=== PATIENT | female | born 1965 | race Caucasian/White ===

== ENCOUNTER 2019-11-07 22:56 | Inpatient (IN) | payer OTHER, SELFPAY ==
--- NOTE | 2019-11-07 23:15 | DI.RAD.S_ITS ---
PROCEDURE: XR CHEST 1V INDICATIONS: confirm NGT placement TECHNIQUE: One view of the chest was acquired. COMPARISON: None. FINDINGS: Surgical changes and devices: Esophagogastric tube in normal position.. Lungs and pleura: Lungs are clear considering reduced inspiratory volume. No pleural effusions or pneumothorax. Mediastinum: Mediastinal contours appear normal. Heart size is normal. Bones and chest wall: No suspicious bony lesions. Overlying soft tissues appear unremarkable. IMPRESSION: Esophagogastric tube positioning normal, reduced inspiration, crowding of the bronchovascular markings but no definite pneumonia is than when this is taken into account. Depending on the clinical status followup deep inspiratory two-view chest may be warranted. Dictated by: Cj Crawford M.D. on 11/08/2019 at 8:23 Approved by: Cj Crawford M.D. on 11/08/2019 at 8:24
[2019-11-07 23:19] LABS: Monocytes Percent Auto 7.3 % (3-14)
[2019-11-07 23:29] VITALS: BP 75/51; PULSE 96; RESP 14; TEMP 36.7; O2SAT 98
[2019-11-07 23:40] LABS: Lactate (Lactic Acid) 3.1 mmol/L (0.7-2.1)
[2019-11-07 23:41] LABS: Acetaminophen < 10 ug/mL (10-30); Add Manual Diff / Slide Review NO; Alanine Aminotransferase 23 IU/L (<35); Albumin 4.4 g/dL (3.5-5.0); Albumin Globulin Ratio 1.3 (1.0-2.8); Alkaline Phosphatase 61 U/L (38-126); Aspartate Aminotransferase 31 IU/L (14-36); BUN Creatinine Ratio 18.2 (6-22); Basophils Absolute Auto 100 /uL (0-100); Basophils Percent Auto 0.9 % (0-2); Bilirubin Total 0.3 mg/dL (0.2-1.3); Bilirubin Unconjugated 0.2 mg/dL (0.0-1.1); Blood Urea Nitrogen 16 mg/dL (7-17); Calcium 8.7 mg/dL (8.4-10.2); Carbon Dioxide 20 mmol/L (22-32); Chloride 108 mmol/L (98-107); Eosinophils Absolute Auto 100 /uL (0-450); Eosinophils Percent Auto 1.8 % (2-4); Estimated Glomerular Filt Rate > 60.0 mL/min (>60); Ethanol (ETOH) 256 mg/dL; Globulin 3.3 g/dL (1.7-4.1); Glucose 116 mg/dL (70-100); HEMOLYSIS < 15 (0-50); Hematocrit 40.5 % (36-46); Hemoglobin 13.4 g/dL (12.0-16.0); Lymphocytes Absolute Auto 2000 /uL (1100-4500); Lymphocytes Percent Auto 33.3 % (25-40); Mean Corpuscular HGB Conc 33.1 % (30-36); Mean Corpuscular Hemoglobin 28.7 PG (26-34); Mean Corpuscular Volume 86.7 fL (80-100); Monocytes Absolute Auto 400 /uL (0-900); Neutrophils Absolute Auto 3300 /uL (1500-7000); Neutrophils Percent Auto 56.7 % (50-75); Platelet Count 313 X10^3/uL (150-400); Red Blood Cell Count 4.67 X10^6/uL (4.0-5.2); Red Cell Distribution Width 13.6 % (11.6-14.8); Salicylate < 1.0 mg/dL (<20); Sodium 142 mmol/L (137-145); Total Protein 7.7 g/dL (6.3-8.2); White Blood Cell Count 5.9 X10^3/uL (4.5-11.0)
--- NOTE | 2019-11-07 23:45 | PC.NURSE ---
call placed to poison control and spoke to Pharmacist Joyce. advised pt needs continuous RR and BP monitoring. Lexapro can cause cardiac changes in 6-8 hours. advised of repeat EKG at the 5-6hr stefano (about 0430), seizure precautions, and K+ and Mag replacements as needed.
[2019-11-07] MEDS: SODIUM CHLORIDE 0.9% 1,000 ML 150 ML IV (23:48)
[2019-11-07] MEDS: ACTIVATED CHARCOAL 50 GM/240 ML PO (23:48)
[2019-11-08] VITALS (16 sets, daily range): BP systolic 80–145; BP diastolic 48–87; PULSE 77–98; RESP 14–32; TEMP 36.7–37.6; O2SAT 94–98; BMI 32.1
--- NOTE | 2019-11-08 00:26 | ED.OVERDOSE ---
HPI - Overdose General Chief Complaint: Toxicology Problem Stated Complaint: Overdose Time Seen by Provider: 11/07/19 22:59 Source: EMS Mode of arrival: EMS Limitations: altered mental status History of Present Illness HPI Narrative: 54F with unknown smoking status and history of anxiety and depression presents by EMS after a witnessed, intentional overdose with suicidal ideation. The patient drank a fair amount of wine and was found by her with a handful of pills that she swallowed about 30 minutes prior to her arrival. Per the paramedics she told him that she wanted to . It is unclear if she has ever made a suicide attempt in the past. She took an unknown quantity of escitalopram oxalate 10 mg tablets, tizanidine 4 mg tablets, and lorazepam 1 mg tablets. These were all prescribed her 6 months ago or longer. She presents a bit confused and somnolent but easily arousable and is guarding her airway without difficulty. MD complaint: intentional overdose Onset (ago): minute(s) Timing confirmed by: spouse Intent: suicide attempt How Overdose Was Discovered: family/friend present at time Associated symptoms: depression Treatments Prior to Arrival: none Review of Systems Review of Systems ROS Unobtainable: Unobtainable due to mental status/LOC Exam Narrative Exam Narrative: GENERAL: [54] year old patient appears stated age. Obviously in distress, somnolent but easily arousable. Guarding her airway without difficulty HEAD: Atraumatic. Normocephalic. EYES: Pupils equal round and reactive. Extraocular motions intact. No scleral icterus. No injection or drainage. ENT: Nose without bleeding, purulent drainage. Throat without erythema, tonsillar hypertrophy or exudate. Airway patent. NECK: Trachea midline. Non tender CARDIOVASCULAR: Regular rate and rhythm without murmurs, gallops, or rubs. RESPIRATORY: Clear to auscultation. Breath sounds equal bilaterally. No wheezes, rales, or rhonchi. GASTROINTESTINAL: Abdomen soft, non-tender, nondistended. EXTREMITIES: No edema or joint tenderness. BACK: Nontender without deformity or crepitance. No flank tenderness. SKIN: No rash or erythema of visible areas Initial Vital Signs Initial Vital Signs: Vital Signs Temperature 98.0 F 11/07/19 23:29 Pulse Rate 96 H 11/07/19 23:29 Respiratory Rate 14 11/07/19 23:29 Blood Pressure 75/51 L 11/07/19 23:29 Pulse Oximetry 98 11/07/19 23:29 Course Course Course Narrative: NG placed soon after arrival and about 200mL of reddish liquid, smells of alcohol, but no pill fragments. Charcoal 50g then given. call to poison control, watch for obtundation, low BP, cardiac effects. Needs admission. Orders Ordered: ED Orders 11/07/19 22:59 Urine Drug Screen, Rapid Stat 11/07/19 23:15 XR chest 1V Stat 11/07/19 23:20 Acetaminophen Stat Complete Blood Count AUTO DIFF Stat Comprehensive Metabolic Panel Stat Ethanol (ETOH) Stat Hepatic (Liver) Panel Stat Lactate (Lactic Acid) Stat Salicylate Stat 11/08/19 EKG-12 Lead Stat Sodium Chloride (Normal Saline 0.9%) 1,000 mls @ 150 mls/hr IV CONT SHILO Last Admin: 11/07/19 23:48 Dose: 150 mls/hr Documented by: ADDY Discontinued Medications Charcoal (Actidose-Aqua) 50 gm PO NOW ONE Stop: 11/07/19 23:00 Last Admin: 11/07/19 23:48 Dose: 50 gm Documented by: ADDY Vital Signs Vital signs: Vital Signs - 8 hr 11/07/19 23:29 11/08/19 00:00 Temperature 98.0 F Pulse Rate 96 H 96 H Respiratory Rate 14 14 Blood Pressure 75/51 L Blood Pressure [Right Arm] 80/48 L Pulse Oximetry 98 94 MDM - Overdose Lab Data Result diagrams: 11/07/19 23:20 11/07/19 23:20 Labs: Lab Results 11/07/19 11/07/19 11/07/19 Range/Units 23:20 23:20 23:20 WBC 5.9 (4.5-11.0) X10^3/uL RBC 4.67 (4.0-5.2) X10^6/uL Hgb 13.4 (12.0-16.0) g/dL Hct 40.5 (36-46) % MCV 86.7 (80-100) fL MCH 28.7 (26-34) PG MCHC 33.1 (30-36) % RDW 13.6 (11.6-14.8) % Plt Count 313 (150-400) X10^3/uL Neut % (Auto) 56.7 (50-75) % Lymph % (Auto) 33.3 (25-40) % [place] % (Auto) 7.3 (3-14) % Eos % (Auto) 1.8 L (2-4) % Baso % (Auto) 0.9 (0-2) % Neut # (Auto) 3300 (8106-7453) /uL Lymph # (Auto) 2000 (8930-1551) /uL [place] # (Auto) 400 (0-900) /uL Eos # (Auto) 100 (0-450) /uL Baso # (Auto) 100 (0-100) /uL Sodium 142 (137-145) mmol/L Potassium 4.0 (3.4-5.1) mmol/L Chloride 108 H (98-107) mmol/L Carbon Dioxide 20 L (22-32) mmol/L BUN 16 (7-17) mg/dL Creatinine 0.88 (0.52-1.04) mg/dL Estimated GFR > 60.0 (>60) mL/min BUN/Creatinine Ratio 18.2 (6-22) Glucose 116 H (70-100) mg/dL Lactate 3.1 H (0.7-2.1) mmol/L Calcium 8.7 (8.4-10.2) mg/dL Total Bilirubin 0.3 (0.2-1.3) mg/dL Conjugated Bilirubin 0.0 (0.0-0.3) md/dL Unconjugated Bilirubin 0.2 (0.0-1.1) mg/dL AST 31 (14-36) IU/L ALT 23 (<35) IU/L Alkaline Phosphatase 61 (38-126) U/L Total Protein 7.7 (6.3-8.2) g/dL Albumin 4.4 (3.5-5.0) g/dL Globulin 3.3 (1.7-4.1) g/dL Albumin/Globulin Ratio 1.3 (1.0-2.8) Salicylates < 1.0 (<20) mg/dL Acetaminophen < 10 L (10-30) ug/mL Ethyl Alcohol 256 H ( - 10) mg/dL Discharge Plan Departure Patient Disposition: Admitted As Inpatient Clinical Impression: Depression with suicidal ideation Polysubstance overdose Qualifiers: Encounter type: initial encounter Injury intent: intentional self-harm Qualified Code(s): T50.902A - Poisoning by unspecified drugs, medicaments and biological substances, intentional self-harm, initial encounter
[2019-11-08 01:26] LABS: Reflexed Lactate in 2 Hours Y
[2019-11-08 01:58] LABS: UR Morphine/Opiate cutoff 300 Negative (Negative); Ur Creatinine 20 (Normal); Ur Specific Gravity 1.015 (Normal); Urine Amphetamines Negative (Negative); Urine Barbiturates Negative (Negative); Urine Benzodiazepines Negative (Negative); Urine Cocaine Negative (Negative); Urine MDMA Negative (Negative); Urine Methadone Negative (Negative); Urine Methamphetamines Negative (Negative); Urine Oxycodone Negative (Negative); Urine Phencyclidine Negative (Negative); Urine Tetrahydrocannabinol Negative (Negative); Urine Tricyclic Antidepressant Negative (Negative); Urine pH 5 (Normal)
[2019-11-08 02:44] LABS: Lactate 2HR (Lactic Acid Rflx) 4.2 mmol/L (0.7-2.1)
[2019-11-08] MEDS: SODIUM CHLORIDE 0.45% 1,000 ML 100 ML IV ×2 (02:45→10:37)
--- NOTE | 2019-11-08 03:30 | PM.HP.1 ---
History of Present Illness History of Present Illness Date Patient Seen: 11/08/19 Time Patient Seen: 03:31 Chief complaint: Overdose Narrative: Ms. Fiordaliza Darling is a 54-year-old female with a prior history of depression with a previous suicide attempt in 2009 who presents to the ER for an overdose. The patient had a witnessed overdose by her approximately 40 minutes prior to arrival to the ER. The patient took another unknown quantity of escitalopram 10 mg, lorazepam 1 mg and tizanidine 4 mg along with drinking alcohol. The patient states these are old medications that she has had in the house. She reports her only medication to be Wellbutrin but does not recall the dose. The patient states she has felt a culmination many things that led to tonight's event. She and sources a previous suicidal attempt in 2009 which also involved overdose on medication and alcohol. She does have a provider that she talks with at [facility]. The patient also describes ongoing nightmares Murray about her mother who recently in September. She reports no complaints of physical pain and has had no recent illness, fevers or chills. She denies complaints headaches or dizziness, visual changes, nasal congestion or sore throat She denies complaints of chest pain or palpitations, shortness of breath cough or wheezing. She has nausea and vomiting upon arrival to the floor with charcoal appearing emesis that she receives treatment in the emergency department. She denies changes in bowel or bladder habits. Upon arrival to the ER the patient had a temperature 98.0?, heart rate 96 was hypotensive is 75/51, respirations of 14 saturating 98% on room air. An NG tube was inserted with no return pill fragments and patient was administered charcoal. A 12 lead EKG is taken with findings of a sinus rhythm at 85 without ectopy or block, QRS interval is 89 milliseconds and QTC is 451 milliseconds. On laboratory analysis the patient has white count of 5.9, hemoglobin of 13.4 hematocrit of 40.5 and platelets of 313. Her sodium was 142 with a chloride of 108. Her potassium is 4.0 and CO is 20. Her BUN is 16 and creatinine is 0.88. Her nonfasting glucose is 116. Her liver functions are all within normal limits and she has lactic acid of 3.1. On tox screen she has an alcohol level of 256, Tylenol is less than 10 and salicylates are less than 1.0. As mentioned the patient is treated with the activated charcoal 50 g and normal saline at 150 cc/hour. The patient is admitted to the hospital for polypharmacy overdose pending DCR evaluation when med clear. Patient History Medical History (Updated 11/08/19 @ 03:47 by SABRINA Baez) Depression with suicidal ideation (Inactive) Surgical History (Updated 11/08/19 @ 03:48 by SABRINA Baez) History of endometrial ablation (Acute) History of neck surgery (Acute) History of right oophorectomy (Acute) Family & Social History Family History (Updated 11/08/19 @ 03:49 by SABRINA Baez) Father Cardiac disease History of aortic valve replacement Mother Cancer Safety & Behavioral: Feels Safe in Current Unwilling to Answer Environment Been Physically Hurt or Unwilling to Answer Threatened By a Person Comment: The patient is and lives with her of 30 years. Smoking: Patient states she has tried smoking in the past. Alcohol: The patient consumes 8 oz of wine daily. Substance use: The patient denies recreational pharmaceuticals, herbal or cannabis products. Advanced directives: Patient does not have formal advanced directives. At this time the patient is deemed FULL CODE. She designates her to be her surrogate decision maker. Meds Home Medications and Allergies Allergies Allergy/AdvReac Type Severity Reaction Status Date / Time duloxetine [From Cymbalta] AdvReac Intermediate Verified 11/08/19 03:10 Review of Systems Review of Systems ROS: Yes All systems reviewed with the patient and are negative except as otherwise documented Exam Vital Signs (past 8 hours): - 11/07/19 23:29 11/08/19 00:00 11/08/19 02:35 Temperature 98.0 F 98.1 F Pulse Rate 96 H 96 H 98 H Respiratory Rate 14 14 24 Blood Pressure 75/51 L 103/62 Blood Pressure [Right Arm] 80/48 L Pulse Oximetry 98 94 98 11/08/19 03:00 Temperature Pulse Rate 98 H Respiratory Rate 18 Blood Pressure 115/68 Blood Pressure [Right Arm] Pulse Oximetry 97 Oxygen Delivery Method Room Air Oxygen Flow Rate 0 Narrative Exam Narrative: GENERAL APPEARANCE: well developed, obese female, in no acute distress. HEENT: Normocephalic, PERRLA, mild conjunctival injection EOMs intact without nystagmus, no sinus tenderness to percussion, no rhinorrhea, mucous membranes are moist and pink without lesions or exudate. NECK/THYROID: neck supple, no JVD, no carotid bruit, no thyromegaly, trachea midline. LYMPH NODES: no cervical or supraclavicular lymphadenopathy. SKIN: [place], warm and dry, no visible lesions, rashes, ulcerations or petechiae. HEART: regular rate and rhythm, S1-S2, no murmur, no rubs or gallops, brisk capillary refill, no edema LUNGS: clear to auscultation bilaterally, no coarseness crackles or wheezing, no cough present CHEST: Symmetrical movement, no accessory muscle use, good tidal volume. ABDOMEN: Soft, no distention, no abdominal tenderness, no guarding or peritoneal signs, no organomegaly, no flank tenderness, active bowel tones. BACK: Normal curvature, nontender to palpation, no CVA tenderness on percussion EXTREMITIES: moves all extremities, strength is 5/5 and symmetrical, no deformities or joint effusions. NEUROLOGIC: AAO x4, no focal neurologic deficits, cranial nerves II-XII grossly intact, sensation intact to light touch, hearing grossly normal to speech. PSYCH: Somewhat labile affect from tearful to compression of anger but remains cooperative and responsive to questions. Objective Labs Result Diagrams: 11/07/19 23:20 11/07/19 23:20 Labs: Laboratory Results - last 24 hr 11/07/19 11/07/19 11/07/19 23:20 23:20 23:20 WBC 5.9 RBC 4.67 Hgb 13.4 Hct 40.5 MCV 86.7 MCH 28.7 MCHC 33.1 RDW 13.6 Plt Count 313 Neut % (Auto) 56.7 Lymph % (Auto) 33.3 [place] % (Auto) 7.3 Eos % (Auto) 1.8 L Baso % (Auto) 0.9 Neut # (Auto) 3300 Lymph # (Auto) 2000 [place] # (Auto) 400 Eos # (Auto) 100 Baso # (Auto) 100 Sodium 142 Potassium 4.0 Chloride 108 H Carbon Dioxide 20 L BUN 16 Creatinine 0.88 Estimated GFR > 60.0 BUN/Creatinine Ratio 18.2 Glucose 116 H Lactate 3.1 H Calcium 8.7 Total Bilirubin 0.3 Conjugated Bilirubin 0.0 Unconjugated Bilirubin 0.2 AST 31 ALT 23 Alkaline Phosphatase 61 Total Protein 7.7 Albumin 4.4 Globulin 3.3 Albumin/Globulin Ratio 1.3 Salicylates < 1.0 U Opiates 300ng/mL cut Ur Oxycodone Screen Urine Methadone Screen Acetaminophen < 10 L Ur Barbiturates Screen U Tricyclic Antidepress Ur Phencyclidine Scrn Ur Amphetamines Screen U Methamphetamines Scrn Ur MDMA Scrn (Ecstasy) U Benzodiazepines Scrn Urine Cocaine Screen U Marijuana (THC) Screen Ethyl Alcohol 256 H 11/08/19 11/08/19 01:46 02:14 WBC RBC Hgb Hct MCV MCH MCHC RDW Plt Count Neut % (Auto) Lymph % (Auto) [place] % (Auto) Eos % (Auto) Baso % (Auto) Neut # (Auto) Lymph # (Auto) [place] # (Auto) Eos # (Auto) Baso # (Auto) Sodium Potassium Chloride Carbon Dioxide BUN Creatinine Estimated GFR BUN/Creatinine Ratio Glucose Lactate 4.2 H* Calcium Total Bilirubin Conjugated Bilirubin Unconjugated Bilirubin AST ALT Alkaline Phosphatase Total Protein Albumin Globulin Albumin/Globulin Ratio Salicylates U Opiates 300ng/mL cut Negative Ur Oxycodone Screen Negative Urine Methadone Screen Negative Acetaminophen Ur Barbiturates Screen Negative U Tricyclic Antidepress Negative Ur Phencyclidine Scrn Negative Ur Amphetamines Screen Negative U Methamphetamines Scrn Negative Ur MDMA Scrn (Ecstasy) Negative U Benzodiazepines Scrn Negative Urine Cocaine Screen Negative U Marijuana (THC) Screen Negative Ethyl Alcohol Assessment & Plan Assessment & Plan narrative: This is a 54-year-old female patient with a prior history of depression and suicidal attempt who was brought to the ER by her following a polypharmacy overdose with alcohol 40 minutes prior to arrival. 1. Polysubstance overdose, acute, present on arrival, active -patient had a witnessed ingestion of an unknown quantity of escitalopram 10 mg, lorazepam 1 mg and tizanidine 4 mg with alcohol 40 minutes prior to arrival to the ER. -tox screen finds an alcohol level of 256, Tylenol is less than 10 and salicylates is less than 1.0. -the patient received 50 g of charcoal in the emergency department. -blood pressure on admission was 75/51. The patient received IV normal saline with improvement of blood pressure to 115/70 on admission to ICU. -on 12 lead EKG and telemetry the patient has no QT prolongation, stable heart rate with no bradycardia, no hyponatremia and liver functions within normal range. -patient is briskly interactive without sedation, no respiratory depression and adequate oxygen saturation on pulse oximetry. She denies hallucinations. -poison control contacted through the emergency department for treatment recommendations which consisted primarily of supportive care and monitoring. -will repeat 12 lead EKG at their request at 4:30 a.m.. -will recheck complete metabolic panel in the morning. 2. Suicidal ideation, attempted suicide, present on admission, active. -patient admits to attempt to harm herself and becomes tearful. -patient with prior attempt in 2009 with medication and alcohol. -when asked if she has any resources or counselors she states she has a provider whom she speaks with through [employer]. -patient is on suicide precautions -maintain seizure precautions. -when med clear will contact DCR for evaluation. 3. Depression, major depressive episode, present on admission, active. -Patient has been previously treated for depression, she states that she is prescribed Wellbutrin but does not recall the dosage and does not take the medication regularly due to twice daily dosing regimen stating it does not work well with her lifestyle. -patient describes major life change with passing of her mother and becomes very tearful discussing her in September. -requested PICK UP AND DELIVERY DRIVER consult for behavioral evaluation and support and resource identification. Isolation: None. VTE prophylaxis: Bilateral SCDs, heparin. IV fluid: 0.45% normal saline at 100 cc/hour. Diet: Clear liquid diet advance as tolerated to regular. Code status: FULL CODE. The patient is admitted as an inpatient to the intensive care unit due to potential complications related to polypharmacy overdose and potential for cardiac and hemodynamic instability. Critical care time: 45 minutes. COVID-19 COVID-19 status: Not tested Time Spent With Patient Time with patient: Greater than 35 minutes
--- NOTE | 2019-11-08 06:23 | PC.NURSE ---
Admit/Night Note-Patient brought to ICU at 0230-Awake and impulsive, initially disoriented to place and time, but over the next hour, she became A/O x4 and able to answer admit questions. Discussed recent losses and stressors in her life, but denies any more suicidal ideation. Vomitted 350ml black liquid emesis and had ex-large soft/loose BM on BSC, was able to rest afterward. 1:1 observation with curtain open. SR/ST, VSS.
[2019-11-08 07:08] LABS: Add Manual Diff / Slide Review NO; Basophils Absolute Auto 0 /uL (0-100); Basophils Percent Auto 0.7 % (0-2); Eosinophils Absolute Auto 0 /uL (0-450); Eosinophils Percent Auto 0.4 % (2-4); Hematocrit 41.6 % (36-46); Hemoglobin 13.7 g/dL (12.0-16.0); Lymphocytes Absolute Auto 1100 /uL (1100-4500); Lymphocytes Percent Auto 25.8 % (25-40); Mean Corpuscular HGB Conc 32.9 % (30-36); Mean Corpuscular Hemoglobin 28.5 PG (26-34); Mean Corpuscular Volume 86.5 fL (80-100); Monocytes Absolute Auto 200 /uL (0-900); Monocytes Percent Auto 3.9 % (3-14); Neutrophils Absolute Auto 3000 /uL (1500-7000); Neutrophils Percent Auto 69.2 % (50-75); Platelet Count 295 X10^3/uL (150-400); Red Blood Cell Count 4.81 X10^6/uL (4.0-5.2); Red Cell Distribution Width 13.6 % (11.6-14.8); White Blood Cell Count 4.3 X10^3/uL (4.5-11.0)
[2019-11-08 07:21] LABS: Alanine Aminotransferase 23 IU/L (<35); Albumin 4.3 g/dL (3.5-5.0); Albumin Globulin Ratio 1.3 (1.0-2.8); Alkaline Phosphatase 55 U/L (38-126); Aspartate Aminotransferase 35 IU/L (14-36); Bilirubin Total 0.4 mg/dL (0.2-1.3); Blood Urea Nitrogen 9 mg/dL (7-17); Calcium 8.6 mg/dL (8.4-10.2); Carbon Dioxide 21 mmol/L (22-32); Chloride 109 mmol/L (98-107); Estimated Glomerular Filt Rate > 60.0 mL/min (>60); Globulin 3.3 g/dL (1.7-4.1); Glucose 110 mg/dL (70-100); HEMOLYSIS 21 (0-50); Magnesium 2.1 mg/dL (1.6-2.3); Potassium 4.2 mmol/L (3.4-5.1); Sodium 142 mmol/L (137-145); Total Protein 7.6 g/dL (6.3-8.2)
[2019-11-08] MEDS: HEPARIN 5,000 UNIT/ML VIAL 5000 UNIT SUBCUT ×2 (10:38→20:45)
[2019-11-08 14:45] LABS: Lactate (Lactic Acid) 0.9 mmol/L (0.7-2.1)
--- NOTE | 2019-11-08 22:35 | PC.NURSE ---
[id number] Pt received from Karol COURTNEY. Pt steady on feet with ambulation to bathroom and stand-by assistance. Pt remains on suicide precautions and seizure precautions. Patient remains 1:1 on suicide precautions. Pt guarded with flat affect until condolences offered with her mother's . Pt then more talkative and much less guarded. Pt talking frequently on cell phone to . Noted to be tearful at times. Vital signs remain stable. Pt is voiding adequate amounts and drinking fluids well. Patient eating small amounts only.
[2019-11-09 01:15] VITALS: BP 147/100; PULSE 87; RESP 16; TEMP 36.4; O2SAT 97
[2019-11-09 03:08] VITALS: PULSE 74; RESP 16; O2SAT 94
[2019-11-09 04:34] VITALS: BP 142/81; PULSE 72; RESP 16; TEMP 36.6; O2SAT 96
[2019-11-09 05:05] LABS: Alanine Aminotransferase 24 IU/L (<35); Albumin 4.2 g/dL (3.5-5.0); Albumin Globulin Ratio 1.2 (1.0-2.8); Alkaline Phosphatase 64 U/L (38-126); Aspartate Aminotransferase 30 IU/L (14-36); BUN Creatinine Ratio 14.7 (6-22); Bilirubin Total 0.8 mg/dL (0.2-1.3); Blood Urea Nitrogen 10 mg/dL (7-17); Calcium 9.2 mg/dL (8.4-10.2); Carbon Dioxide 29 mmol/L (22-32); Chloride 103 mmol/L (98-107); Estimated Glomerular Filt Rate > 60.0 mL/min (>60); Globulin 3.5 g/dL (1.7-4.1); Glucose 97 mg/dL (70-100); HEMOLYSIS < 15 (0-50); Potassium 4.1 mmol/L (3.4-5.1); Sodium 137 mmol/L (137-145); Total Protein 7.7 g/dL (6.3-8.2)
--- NOTE | 2019-11-09 06:18 | PC.NURSE ---
Tube Station Attendant Note-Patient slept throughout night, 1:1 observation, curtain open, seizure pads on rails. A/O x4 when awake, calm, cooperative with flat affect. SR, VSS, RA sats >94%, denies pain, not talkative overnight.
[2019-11-09 08:00] VITALS: BP 132/79; PULSE 69; RESP 16; TEMP 36.6; O2SAT 97
[2019-11-09] MEDS: HEPARIN 5,000 UNIT/ML VIAL 5000 UNIT SUBCUT (09:49)
[2019-11-09] MEDS: SODIUM CHLORIDE 0.9% FLUSH 10 ML IV (09:50)
--- NOTE | 2019-11-09 10:43 | PM.DS.1 ---
History of Present Illness History of Present Illness Date Patient Seen: 11/08/19 Chief complaint: Overdose Narrative: Written by Amador BENNETT: Ms. Fiordaliza Darling is a 54-year-old female with a prior history of depression with a previous suicide attempt in 2009 who presents to the ER for an overdose. The patient had a witnessed overdose by her approximately 40 minutes prior to arrival to the ER. The patient took another unknown quantity of escitalopram 10 mg, lorazepam 1 mg and tizanidine 4 mg along with drinking alcohol. The patient states these are old medications that she has had in the house. She reports her only medication to be Wellbutrin but does not recall the dose. The patient states she has felt a culmination many things that led to tonight's event. She and sources a previous suicidal attempt in 2009 which also involved overdose on medication and alcohol. She does have a provider that she talks with at [facility]. The patient also describes ongoing nightmares Murray about her mother who recently in September. She reports no complaints of physical pain and has had no recent illness, fevers or chills. She denies complaints headaches or dizziness, visual changes, nasal congestion or sore throat She denies complaints of chest pain or palpitations, shortness of breath cough or wheezing. She has nausea and vomiting upon arrival to the floor with charcoal appearing emesis that she receives treatment in the emergency department. She denies changes in bowel or bladder habits. Upon arrival to the ER the patient had a temperature 98.0?, heart rate 96 was hypotensive is 75/51, respirations of 14 saturating 98% on room air. An NG tube was inserted with no return pill fragments and patient was administered charcoal. A 12 lead EKG is taken with findings of a sinus rhythm at 85 without ectopy or block, QRS interval is 89 milliseconds and QTC is 451 milliseconds. On laboratory analysis the patient has white count of 5.9, hemoglobin of 13.4 hematocrit of 40.5 and platelets of 313. Her sodium was 142 with a chloride of 108. Her potassium is 4.0 and CO is 20. Her BUN is 16 and creatinine is 0.88. Her nonfasting glucose is 116. Her liver functions are all within normal limits and she has lactic acid of 3.1. On tox screen she has an alcohol level of 256, Tylenol is less than 10 and salicylates are less than 1.0. As mentioned the patient is treated with the activated charcoal 50 g and normal saline at 150 cc/hour. The patient is admitted to the hospital for polypharmacy overdose pending DCR evaluation when med clear. Discharge Providers Provider Date of admission: 11/08/19 01:23 Discharge Date: 11/09/19 Consults: 11/08/19 03:03 Consult to Discharge Planning Routine Comment: Consult to THERAPEUTIC RECREATION SPECIALIST - [employer] Routine Comment: Suicidal ideation, intentional polypharmacy OD THERAPEUTIC RECREATION SPECIALIST Consult: Behavioral Health Assess Discharge provider: Sarina Mi DO Summary Hospital Course Discharge Diagnosis: 1. Acute intentional polysubstance overdose with suicide attempt, present on admission. Resolved. 2. Major depressive disorder, present on admission. Active. Hospital Course: Batsheva Darling is a 54-year-old female with a past medical history significant for depression and previous suicide attempt who was brought to the ED by her following an intentional polysubstance overdose in a suicide attempt 40 minutes prior to arrival. 1. Acute intentional polysubstance overdose in a suicide attempt, present on admission. Resolved. -Patient had a witnessed ingestion of an unknown quantity of escitalopram 10 mg, lorazepam 1 mg and tizanidine 4 mg with alcohol 40 minutes prior to arrival to the ED. Patient with situational component/trigger due to the of her mother last month in September.Patient with prior suicide attempt in 2009 with medication and alcohol. -Received 50 g of charcoal x 1 in ED. -Initial blood pressure was 75/51 on admission. Received IV fluid hydration with normal saline and improvement in blood pressure to 115/70. -EKG demonstrated normal sinus rhythm without QTc prolongation or bradycardia. -Poison control contacted through the emergency department for treatment recommendations which consisted primarily of supportive care and monitoring. -No metabolic changes. No transiminitis or hyponatremia. -Patient is awake, alert, interactive without sedation. No respiratory depression and adequate oxygenation on pulse oximetry. Patient denies current suicidal ideation, plan and is remorseful regarding attempt. -Conitnued suicide precautions. -Consulted THERAPEUTIC RECREATION SPECIALIST and we appreciate her time and recommendations. Patient discharged home with safe plan in place, spouse and family support and psychologist and physician follow-up next day. 2. Major depressive disorder, present on admission. Active. -Patient has been previously treated for depression with Wellbutrin (unknown dose) but due to twice daily dosing was non-compliant. -Patient with situational component/trigger due to the of her mother last month in September. -Consulted THERAPEUTIC RECREATION SPECIALIST and we appreciate her time and recommendations. Patient discharged home with safe plan in place, spouse and family support and psychologist and physician follow-up next day. Exam Vital Signs (past 8 hours): - 11/09/19 03:08 11/09/19 04:34 11/09/19 08:00 Temperature 97.8 F 97.8 F Pulse Rate 74 72 69 Respiratory Rate 16 16 16 Blood Pressure 142/81 H 132/79 Pulse Oximetry 94 96 97 Oxygen Delivery Method Room Air Oxygen Flow Rate 0 Narrative Exam Narrative: General: Middle aged female lying in bed and in no acute distress, well-developed, well-nourished, depressed mood, slighlty tearful but otherwise appropriately interactive. HEENT: Normocephalic, atraumatic. External ears without defect. Pupils equal, round, and reactive to light. Anicteric sclerae, moist conjunctivae, and no lid lag. Oropharynx free of erythema and cobble stoning with moist mucosa. Neck: Supple with full range of motion. No jugular venous distension. No bruits. No lymphadenopathy or thyromegaly. Cardiovascular: Regular rate and rhythm without murmurs, rubs, or gallops appreciated. Pulmonary: Clear to auscultation bilaterally without crackles, wheezes, or rhonchi. Normal respiratory effort with no use of accessory muscles. Abdomen: Soft, bowel sounds present. nontender, nondistended. No hepatosplenomegaly or masses appreciated. Extremities: No clubbing, cyanosis, or edema. Skin: Normal temperature, turgor, and texture; no rash, ulcers, or subcutaneous nodules appreciated. Neurological: Cranial nerves grossly intact. Normal muscle strength, tone, and bulk. Reflexes, coordination, and sensory function within normal limits. Psychiatric: Depressed mood and affect. Tearful. Alert and oriented to person, place, and time. No hallucinations or delusions. Denies suicidal ideation or plan. Objective Labs Result Diagrams: 11/08/19 06:35 11/09/19 04:25 Labs: Laboratory Results - last 24 hr 11/08/19 11/09/19 14:24 04:25 Sodium 137 Potassium 4.1 Chloride 103 Carbon Dioxide 29 BUN 10 Creatinine 0.68 Estimated GFR > 60.0 BUN/Creatinine Ratio 14.7 Glucose 97 Lactate 0.9 Calcium 9.2 Total Bilirubin 0.8 AST 30 ALT 24 Alkaline Phosphatase 64 Total Protein 7.7 Albumin 4.2 Globulin 3.5 Albumin/Globulin Ratio 1.2 Discharge Plan Discharge Plan Patient Disposition: Home Discharge comment: You're being discharged home. You have been assessed by the social services analyst and a safety plan has been implemented that you, your spouse/family and physician agreed upon. Please follow up with your counselor at [facility] tomorrow at 10:00 a.m. and your primary care provider at 12:00 p.m. as scheduled. If you feel as though you may harm yourself or others please call 911 immediately or the suicide hotline. Discharge orders & Medications Prescriptions: Discontinued bupropion HCl [Wellbutrin XL] 150 mg Tablet Extended Release 24 Hr 150 mg PO QAM RF: 0 Diet/Activity/Treatments Diet: Regular Activity: Activity as tolerated Visit Report/Discharge Packet Instructions: DI for Suicidal Ideation-Adult, How to Create a Suicide Prevention Safety Plan Discharges patient from system. Discharge Date/Time: 11/09/19 12:15 Quality VTE Deep Vein Thrombosis/Pulmonary Embolism Present on Admission: No
== END 2019-11-09 12:15 | disposition home or self-care (01) | DRG 918 ==
LOC: ED 11-08 01:12 → AC 11-08 01:24 → ICU 11-08 02:32
PROVIDERS: Internal Medicine; Admitting Provider Nurse Practitioner Adult Health; Emergency Provider Emergency Medicine; Referring Provider Emergency Medicine; Visit Provider Nurse Practitioner Adult Health
DX: T43.222A Poisoning by selective serotonin reuptake inhibitors, intentional self-harm, initial encounter (principal); R45.851 Suicidal ideations; T42.4X2A Poisoning by benzodiazepines, intentional self-harm, initial encounter; T42.8X2A Poisoning by antiparkinsonism drugs and other central muscle-tone depressants, intentional self-harm, initial encounter; T51.92XA Toxic effect of unspecified alcohol, intentional self-harm, initial encounter; F32.9 Major depressive disorder, single episode, unspecified; Y92.009 Unspecified place in unspecified non-institutional (private) residence as the place of occurrence of the external cause; Y90.8 Blood alcohol level of 240 mg/100 ml or more
CPT/HCPCS: 36415; 71045; 80053; 80076; 80305; 80320; 80329; 83605; 83735; 85025; 87797; 93005; 96360; 96361; 99285; 99291; 99292; G0480; J1644; J7050

== ENCOUNTER 2020-10-29 07:28 | Day surgery (SDC) | payer OTHER, SELFPAY ==
[2019-11-08 03:00] VITALS: BMI 32.1
[2020-10-29] VITALS (7 sets, daily range): BP systolic 104–139; BP diastolic 68–97; PULSE 56–90; RESP 11–20; TEMP 36.2–36.9; O2SAT 95–99; BMI 31.2
--- NOTE | 2020-10-29 | PATH_ITS ---
[facility] Accession Number: [id number] . 01 Material submitted: . PART A: gastrointestinal site - GASTRIC BIOPSIES, RANDOM PART B: colon - CECUM POLYP . 01 Clinical history: . SDC . 02 Diagnosis: A. Stomach, Random Biopsies: Body-type mucosa with no diagnostic abnormalty. Negative for intestinal metaplasia. Negative for Helicobacter organisms by immunohistochemistry. Negative for dysplasia or malignancy. . B. Cecum, Polyp, Biopsy: Benign lymphoid aggregate. Additional levels were examined. MRV 11/02/2020 1257 Local . 02 Electronically signed: . Lou Colorado MD, Pathologist NPI- [id number] . 01 Gross description: . Part A: GASTRIC BIOPSIES, RANDOM: Received in formalin are 2 fragment(s) of de la torre, soft tissue measuring 0.1 x 0.1 x 0.1 cm to 0.2 x 0.2 x 0.2 cm submitted entirely in 1 cassette(s) Part B: CECUM POLYP: Received in formalin is 1 fragment(s) of de la torre, soft tissue measuring 0.3 x 0.3 x 0.2 cm submitted entirely in 1 cassette(s) /HARPAL 10/30/2020 1904 Local . 02 Microscopic: . A. An immunohistochemical stain was performed to evaluate for Helicobacter organisms and is negative. The control stain showed appropriate reactivity. . B. Additional levels were examined. . * This test was developed and its performance characteristics determined by [employer]. It has not been cleared or approved by the U.S. Food and Drug Administration. The FDA has determined that such clearance or approval is not necessary. This test is used for clinical purposes. It should not be regarded as investigational or for research. . 02 Pathologist provided ICD-10: K92.1, K63.5 . 02 CPT . 746045, 946630, H04820 Performed at: 01 [facility] [address] [place] [address], [place], [place] [id number] MD Abdirashid Hayes MD Phone: [phone] Performed at: 02 [facility] [address] [place], [place] [id number] MD Lou Colorado MD Phone: [phone]
[2020-10-29] MEDS: LACTATED RINGERS 1,000 ML 200 ML IV (08:00)
--- NOTE | 2020-10-29 08:12 | PM.PREOP ---
Pre-operative Note Interval Note History & Physical reviewed/Exam performed by Physician: Yes Changes to H&P: No
[2020-10-29] MEDS: LIDOCAINE 4% SOLN 50 ML 20 ML TOP (08:18)
[2020-10-29] MEDS: fentaNYL 250 MCG/5 ML INJ IV (08:23)
[2020-10-29] MEDS: MIDAZOLAM 5 MG/5 ML VIAL IV ×2 (08:23→08:49)
--- NOTE | 2020-10-29 08:51 | PM.OP.ENDO ---
Operative Date/Time/Diagnoses Date of procedure: 10/29/20 Time of procedure: 08:51 Pre-op diagnosis: Blood per rectum, family history of colon cancer Post-op diagnosis: same Procedure & Clinicians Study performed: Esophagoduodenoscopy Colonoscopy Same procedure as scheduled: Yes Indications: History of colon cancer, blood per rectum Surgeon: Da Mosley Procedure Notes Procedure in detail: Patient placed in left lateral decubitus position. Time out was performed. Procedural sedation was administered with Versed and Fentanyl. A bite block was placed. the scope was inserted into the mouth and advanced through the esophagus and into the stomach. The stomach was notable for mild gastritis there was specks of coagulated blood no at active bleeding or ulcers. Random gastric biopsies were taken. The pylorus was intubated and the duodenum was normal to the 2nd portion. The scope was retroflexed within the stomach and there was a small hiatal hernia. The scope was withdrawn into the esophagus the Z line was seen at 35 cm from the incisions. There was no Daley's esophagitis or masses or strictures. Stomach was desufflated and scope removed. Patient tolerated procedure well. Examination began with a thorough inspection of the perianal area there was no evidence of fissures, fistulae, external hemorrhoids or cutaneous malignancy. The colonoscopy scope was then placed into the anal canal and was advanced to the cecum, which was identified by the ileocecal valve, the appendiceal orifice and the confluence of the taenia. The scope was then slowly withdrawn examining colon thoroughly in all directions, irrigating it of any residual stool. -3 mm cecal polyp removed with biopsy forceps. -sigmoid diverticulosis The patient tolerated the procedure well. They will be discharged once criteria are met. The prep was of good/excellent quality. The withdrawl time was 7 minutes. The sedation time was 29 minutes. Specimen(s): other (Cecal polyp, random gastric) Complications: none Impression: Gastritis Post-procedure Recommendations: Colonscopy in 5 years Plan for aftercare: Start omeprazole Disposition: same day surgery
--- NOTE | 2020-10-29 09:39 | SUR.PHASEII ---
Pt is still extremely sleepy. VSS but slightly below pre procedure set. Placed on continuous pulse ox.
== END 2020-10-29 10:22 | disposition home or self-care (01) ==
PROVIDERS: Referring Provider Surgery; Visit Provider Surgery
PROC: 0DJ08ZZ Inspection of Upper Intestinal Tract, Via Natural or Artificial Opening Endoscopic (ICD-10-PCS; CPT 43235; principal; 2020-10-29 08:30)
PROC: 0DJD8ZZ Inspection of Lower Intestinal Tract, Via Natural or Artificial Opening Endoscopic (ICD-10-PCS; CPT 45378; 2020-10-29 08:30)
DX: K62.5 Hemorrhage of anus and rectum (principal); Z80.0 Family history of malignant neoplasm of digestive organs; K57.30 Diverticulosis of large intestine without perforation or abscess without bleeding
CPT/HCPCS: 45380; 43239; 99152; 99153; J2250; J3010

== ENCOUNTER 2020-12-13 05:35 | Emergency (ER) | payer OTHER, SELFPAY ==
[2019-11-08 03:00] VITALS: BMI 32.1
[2020-12-13] VITALS (12 sets, daily range): BP systolic 146–168; BP diastolic 83–100; PULSE 77–93; RESP 14–23; TEMP 36.5; O2SAT 91–98; BMI 32.4
--- NOTE | 2020-12-13 05:46 | DI.RAD.S_ITS ---
PROCEDURE: XR CHEST 1V INDICATIONS: chest pain TECHNIQUE: One view of the chest was acquired. COMPARISON: [facility], CR, XR CHEST 1V, 11/07/2019, 23:17. FINDINGS: Surgical changes and devices: None. Lungs and pleura: Subtle focal opacity noted in the right lung base concerning for pneumonia versus aspiration. No pleural effusions or pneumothorax. Mediastinum: Mediastinal contours appear normal. Heart size is normal. Bones and chest wall: No suspicious bony lesions. Overlying soft tissues appear unremarkable. IMPRESSION: Subtle right basilar opacity suspicious for aspiration versus pneumonia. Dictated by: Cynthia Dietz MD, PhD on 12/13/2020 at 8:38 Approved by: Cynthia Dietz MD, PhD on 12/13/2020 at 8:38
[2020-12-13 05:56] LABS: Add Manual Diff / Slide Review NO; Basophils Absolute Auto 100 /uL (0-100); Basophils Percent Auto 0.9 % (0-2); Eosinophils Absolute Auto 100 /uL (0-450); Eosinophils Percent Auto 0.8 % (2-4); Hematocrit 44.7 % (36-46); Hemoglobin 15.1 g/dL (12.0-16.0); Lymphocytes Absolute Auto 1500 /uL (1100-4500); Lymphocytes Percent Auto 21.7 % (25-40); Mean Corpuscular HGB Conc 33.8 % (30-36); Mean Corpuscular Hemoglobin 30.2 PG (26-34); Mean Corpuscular Volume 89.4 fL (80-100); Monocytes Absolute Auto 500 /uL (0-900); Monocytes Percent Auto 6.8 % (3-14); Neutrophils Absolute Auto 4800 /uL (1500-7000); Neutrophils Percent Auto 69.8 % (50-75); Platelet Count 323 X10^3/uL (150-400); Red Blood Cell Count 5.01 X10^6/uL (4.0-5.2); Red Cell Distribution Width 14.1 % (11.6-14.8); White Blood Cell Count 6.9 X10^3/uL (4.5-11.0)
--- NOTE | 2020-12-13 06:07 | ED.CHESTPAIN ---
HPI - Chest Pain <Jeremías Ortega MD - Last Filed: 01/01/21 07:17> General Chief Complaint: Chest Pain Stated Complaint: chest pain Time Seen by Provider: 12/13/20 05:53 Source: patient and family History of Present Illness HPI narrative: Patient here for chest pain that has been off and on for the past 1 month. Has not seen provider for this complaint. Patient states about 3 times a week this occurs. Again her morning time or at nighttime or daytime. She complains left-sided chest pressure/aching/tightness/sharp that radiates to left arm. It does occur with exertion causing dyspnea. Has sweating. No nausea no syncope. It can occur at morning times. Sometimes it resolves with drinking water. However this morning it did not resolve.. Discomfort is still present. At its worse was this morning 910. At this time about 2/10. Blood pressure noted. No history of hypertension. No history of high cholesterol. Father history of bypass surgery. Patient has never had a stress test. Patient does not smoke. No recent illness fever chills cough cold or congestion. Discomfort does not change with eating or not eating MD complaint: chest pain Related Data Previous Rx's Medication Instructions Recorded fluconazole 150 mg tablet 150 mg PO Q3D #2 tab 12/17/20 clindamycin phosphate 2 % vaginal 1 appful VAGINAL DAILY #40 g 12/18/20 cream Allergies Allergy/AdvReac Type Severity Reaction Status Date / Time duloxetine [From Cymbalta] AdvReac Intermediate Verified 12/17/20 10:35 Review of Systems <Jeremías Ortega MD - Last Filed: 01/01/21 07:17> Review of Systems Narrative: GENERAL: Denies chills, fatigue, malaise, fever, sweats. HEENT: Denies sinus pain, ear pain, sore throat RESPIRATORY: Complains of dyspnea, denies cough CARDIOVASCULAR: Complaint chest pain and diaphoresis, denies palpitations GASTROINTESTINAL: Denies nausea, vomiting, abdominal pain : Denies dysuria, frequency, hematuria MUSCULOSKELETAL: denies muscle or bony pain SKIN: Denies rash, skin lesions NEUROLOGIC: Denies weakness, numbness ROS Unobtainable: All systems reviewed & are unremarkable except as noted in HPI and below Patient History <Jeremías Ortega MD - Last Filed: 01/01/21 07:17> Medical History Depression with suicidal ideation Surgical History History of endometrial ablation History of neck surgery History of right oophorectomy Family History Father Heart disease History of aortic valve replacement Cancer Mother Cancer Hypertension Social History marital status: household members: spouse occupational status: employed Smoking Status: Never smoker alcohol intake: current Smoking Status: Never smoker alcohol intake frequency: a few times a week Substance Use Type: does not use Exam <Jeremías Ortega MD - Last Filed: 01/01/21 07:17> Narrative Exam Narrative: GENERAL: in no distress, not toxic not dyspneic HEAD: Normocephalic. EYES: Pupils equal round No scleral icterus. No injection no discharge ENT: Mucous membranes moist. NECK: Trachea midline. CARDIOVASCULAR: Regular rate and rhythm without murmurs RESPIRATORY: Clear to auscultation. Breath sounds equal bilaterally. No wheezes, rales, or rhonchi. GASTROINTESTINAL: Abdomen soft, non-tender EXTREMITIES: No gross deformities. BACK: No flank tenderness. NEURO: AOx4. SKIN: Warm and dry PSYCH: Not anxious, is cooperative Initial Vital Signs Initial Vital Signs: Vital Signs Temperature 97.7 F 12/13/20 05:44 Pulse Rate 93 H 12/13/20 05:44 Respiratory Rate 17 12/13/20 05:44 Blood Pressure 168/100 H 12/13/20 05:44 Pulse Oximetry 95 12/13/20 05:44 <Lenin Chun DO - Last Filed: 12/13/20 09:12> Initial Vital Signs Initial Vital Signs: Vital Signs Temperature 97.7 F 12/13/20 05:44 Pulse Rate 93 H 12/13/20 05:44 Respiratory Rate 17 12/13/20 05:44 Blood Pressure 168/100 H 12/13/20 05:44 Pulse Oximetry 95 12/13/20 05:44 Course <Jeremías Ortega MD - Last Filed: 01/01/21 07:17> Course Course Narrative: 7:[address] Chun, will likely need stress test, admit for balance of chest pain workup Orders Ordered: Discontinued Medications Aspirin (Aspirin 81 Mg Chew Tab) 324 mg PO NOW ONE Stop: 12/13/20 06:07 Last Admin: 12/13/20 06:25 Dose: 324 mg Documented by: VLADIMIR Nitroglycerin (Nitroglycerin Oint 1 Inch/Gm Oint...G.) 0.5 inch TOP NOW ONE Stop: 12/13/20 06:07 Last Admin: 12/13/20 06:23 Dose: 0.5 inch Documented by: VLADIMIR Vital Signs Vital signs: Vital Signs - 8 hr 12/13/20 05:44 12/13/20 06:23 Temperature 97.7 F Pulse Rate 93 H 93 H Respiratory Rate 17 Blood Pressure 168/100 H 168/100 H Pulse Oximetry 95 <Lenin Chun DO - Last Filed: 12/13/20 09:12> Orders Ordered: Discontinued Medications Aspirin (Aspirin 81 Mg Chew Tab) 324 mg PO NOW ONE Stop: 12/13/20 06:07 Last Admin: 12/13/20 06:25 Dose: 324 mg Documented by: VLADIMIR Nitroglycerin (Nitroglycerin Oint 1 Inch/Gm Oint...G.) 0.5 inch TOP NOW ONE Stop: 12/13/20 06:07 Last Admin: 12/13/20 06:23 Dose: 0.5 inch Documented by: VLADIMIR Vital Signs Vital signs: Vital Signs - 8 hr 12/13/20 05:44 12/13/20 06:23 Temperature 97.7 F Pulse Rate 93 H 93 H Respiratory Rate 17 Blood Pressure 168/100 H 168/100 H Pulse Oximetry 95 MDM - Chest Pain <Jeremías Ortega MD - Last Filed: 01/01/21 07:17> Differential Diagnosis Differential diagnosis: Likely stable angina, unstable angina pectoris, atypical chest pain, chest pain and biliary colic Medical Records Data Attestation: I reviewed the patient's medical records. Lab Data Attestation: I reviewed the patient's lab results. Result diagrams: 12/13/20 05:47 12/13/20 05:47 Labs: Lab Results 12/13/20 12/13/20 12/13/20 Range/Units 05:47 05:47 08:13 WBC 6.9 (4.5-11.0) X10^3/uL RBC 5.01 (4.0-5.2) X10^6/uL Hgb 15.1 (12.0-16.0) g/dL Hct 44.7 (36-46) % MCV 89.4 (80-100) fL MCH 30.2 (26-34) PG MCHC 33.8 (30-36) % RDW 14.1 (11.6-14.8) % Plt Count 323 (150-400) X10^3/uL Neut % (Auto) 69.8 (50-75) % Lymph % (Auto) 21.7 L (25-40) % [place] % (Auto) 6.8 (3-14) % Eos % (Auto) 0.8 L (2-4) % Baso % (Auto) 0.9 (0-2) % Neut # (Auto) 4800 (8871-0276) /uL Lymph # (Auto) 1500 (0880-1845) /uL [place] # (Auto) 500 (0-900) /uL Eos # (Auto) 100 (0-450) /uL Baso # (Auto) 100 (0-100) /uL Sodium 136 L (137-145) mmol/L Potassium 4.3 (3.4-5.1) mmol/L Chloride 101 (98-107) mmol/L Carbon Dioxide 27 (22-32) mmol/L BUN 14 (7-17) mg/dL Creatinine 0.64 (0.52-1.04) mg/dL Estimated GFR > 60.0 (>60) mL/min BUN/Creatinine Ratio 21.9 (6-22) Glucose 104 H (70-100) mg/dL Calcium 9.3 (8.4-10.2) mg/dL Total Bilirubin 0.7 (0.2-1.3) mg/dL AST 38 H (14-36) IU/L ALT 34 (<35) IU/L Alkaline Phosphatase 109 (38-126) U/L Total Creatine Kinase 133 123 (30-135) U/L CK-MB (CK-2) < 0.22 < 0.22 (<2.37) ng/mL CK-MB (CK-2) Rel Index 0.2 L 0.2 L (1.5-5.0) % Troponin I < 0.012 < 0.012 (0.01-0.034) ng/mL Total Protein 8.5 H (6.3-8.2) g/dL Albumin 4.5 (3.5-5.0) g/dL Globulin 4.0 (1.7-4.1) g/dL Albumin/Globulin Ratio 1.1 (1.0-2.8) Lipase 229 (23-300) U/L ECG Data Attestation: I personally reviewed and interpreted this ECG as follows: Interpretation: Normal sinus rhythm rate [address] elevation or depression <Lenin Chun DO - Last Filed: 12/13/20 09:12> Lab Data Labs: Lab Results 12/13/20 12/13/20 12/13/20 Range/Units 05:47 05:47 08:13 WBC 6.9 (4.5-11.0) X10^3/uL RBC 5.01 (4.0-5.2) X10^6/uL Hgb 15.1 (12.0-16.0) g/dL Hct 44.7 (36-46) % MCV 89.4 (80-100) fL MCH 30.2 (26-34) PG MCHC 33.8 (30-36) % RDW 14.1 (11.6-14.8) % Plt Count 323 (150-400) X10^3/uL Neut % (Auto) 69.8 (50-75) % Lymph % (Auto) 21.7 L (25-40) % [place] % (Auto) 6.8 (3-14) % Eos % (Auto) 0.8 L (2-4) % Baso % (Auto) 0.9 (0-2) % Neut # (Auto) 4800 (3439-2773) /uL Lymph # (Auto) 1500 (9046-0619) /uL [place] # (Auto) 500 (0-900) /uL Eos # (Auto) 100 (0-450) /uL Baso # (Auto) 100 (0-100) /uL Sodium 136 L (137-145) mmol/L Potassium 4.3 (3.4-5.1) mmol/L Chloride 101 (98-107) mmol/L Carbon Dioxide 27 (22-32) mmol/L BUN 14 (7-17) mg/dL Creatinine 0.64 (0.52-1.04) mg/dL Estimated GFR > 60.0 (>60) mL/min BUN/Creatinine Ratio 21.9 (6-22) Glucose 104 H (70-100) mg/dL Calcium 9.3 (8.4-10.2) mg/dL Total Bilirubin 0.7 (0.2-1.3) mg/dL AST 38 H (14-36) IU/L ALT 34 (<35) IU/L Alkaline Phosphatase 109 (38-126) U/L Total Creatine Kinase 133 123 (30-135) U/L CK-MB (CK-2) < 0.22 < 0.22 (<2.37) ng/mL CK-MB (CK-2) Rel Index 0.2 L 0.2 L (1.5-5.0) % Troponin I < 0.012 < 0.012 (0.01-0.034) ng/mL Total Protein 8.5 H (6.3-8.2) g/dL Albumin 4.5 (3.5-5.0) g/dL Globulin 4.0 (1.7-4.1) g/dL Albumin/Globulin Ratio 1.1 (1.0-2.8) Lipase 229 (23-300) U/L MDM Narrative Medical decision making narrative: Dr cuhn: Received turned over from night provider. Reviewed patient's history and physical and labs and EKG. Awaiting 2nd troponin which subsequently was negative. Chest x-ray is unremarkable. I did discuss the findings with the patient. Will discharge home and have her follow-up with her primary doctor to discuss further testing/risk stratification. Patient was given return precautions. She expressed understanding and agreement. Discharge Plan Departure Patient Disposition: Home Clinical Impression: Chest pain Instructions: DI for Chest Pain Activity Restrictions/Additional Instructions: I do recommend that you contact your primary provider to discuss further testing which will include a stress test. I recommend that you contact his office today when they open to get this scheduled. Return to the emergency department for any new or worsening symptoms. Prescriptions: No Action clindamycin phosphate 2 % cream 1 appful vaginal DAILY Qty: 40 RF: 0 fluconazole 150 mg tablet 150 mg PO Q3D Qty: 2 RF: 0
[2020-12-13 06:10] LABS: Alanine Aminotransferase 34 IU/L (<35); Albumin 4.5 g/dL (3.5-5.0); Albumin Globulin Ratio 1.1 (1.0-2.8); Alkaline Phosphatase 109 U/L (38-126); Aspartate Aminotransferase 38 IU/L (14-36); BUN Creatinine Ratio 21.9 (6-22); Bilirubin Total 0.7 mg/dL (0.2-1.3); Blood Urea Nitrogen 14 mg/dL (7-17); Calcium 9.3 mg/dL (8.4-10.2); Carbon Dioxide 27 mmol/L (22-32); Chloride 101 mmol/L (98-107); Creatine Kinase 133 U/L (30-135); Estimated Glomerular Filt Rate > 60.0 mL/min (>60); Glucose 104 mg/dL (70-100); HEMOLYSIS < 15 (0-50); Lipase 229 U/L (23-300); Potassium 4.3 mmol/L (3.4-5.1); Sodium 136 mmol/L (137-145); Total Protein 8.5 g/dL (6.3-8.2)
[2020-12-13 06:21] LABS: Troponin I < 0.012 ng/mL (0.01-0.034)
[2020-12-13] MEDS: NITROGLYCERIN OINT 1 INCH/GM OINT...G. 0.5 INCH TOP (06:23)
[2020-12-13] MEDS: ASPIRIN 81 MG CHEW TAB 324 MG PO (06:25)
[2020-12-13 06:45] LABS: CKMB % Relative Index 0.2 % (1.5-5.0); Creatine Kinase MB < 0.22 ng/mL (<2.37)
[2020-12-13 08:30] LABS: Creatine Kinase 123 U/L (30-135)
[2020-12-13 08:43] LABS: Troponin I < 0.012 ng/mL (0.01-0.034)
[2020-12-13 08:45] LABS: CKMB % Relative Index 0.2 % (1.5-5.0); Creatine Kinase MB < 0.22 ng/mL (<2.37)
== END 2020-12-13 09:20 | disposition home or self-care (01) ==
PROVIDERS: Emergency Medicine; Emergency Provider Emergency Medicine
DX: R07.9 Chest pain, unspecified (principal)
CPT/HCPCS: 36415; 71045; 80053; 82550; 82553; 83690; 84484; 85025; 93005; 99284

== ENCOUNTER → 2020-12-17 12:09 | Outpatient (CLI) | payer OTHER, SELFPAY ==
[2019-11-08 03:00] VITALS: BMI 32.1
== END ==
PROVIDERS: PCP Family Medicine; Referring Provider Obstetrics & Gynecology; Visit Provider Obstetrics & Gynecology
DX: B37.9 Candidiasis, unspecified (principal); R39.89 Other symptoms and signs involving the genitourinary system
CPT/HCPCS: 87070; 87077; 87147; 87205

== ENCOUNTER → 2021-05-16 14:32 | Outpatient (CLI) | payer OTHER, SELFPAY ==
[2019-11-08 03:00] VITALS: BMI 32.1
[2021-05-16 16:01] LABS: Add Manual Diff / Slide Review NO; Basophils Absolute Auto 0 /uL (0-100); Basophils Percent Auto 0.5 % (0-2); Eosinophils Absolute Auto 0 /uL (0-450); Hematocrit 48.1 % (36-46); Hemoglobin 16.6 g/dL (12.0-16.0); Lymphocytes Absolute Auto 600 /uL (1100-4500); Lymphocytes Percent Auto 6.7 % (25-40); Mean Corpuscular HGB Conc 34.5 % (30-36); Mean Corpuscular Hemoglobin 30.5 PG (26-34); Mean Corpuscular Volume 88.4 fL (80-100); Monocytes Absolute Auto 400 /uL (0-900); Monocytes Percent Auto 3.7 % (3-14); Neutrophils Absolute Auto 8600 /uL (1500-7000); Neutrophils Percent Auto 89.1 % (50-75); Platelet Count 370 X10^3/uL (150-400); Red Blood Cell Count 5.44 X10^6/uL (4.0-5.2); Red Cell Distribution Width 13.7 % (11.6-14.8); White Blood Cell Count 9.6 X10^3/uL (4.5-11.0)
[2021-05-16 16:47] LABS: Alanine Aminotransferase 45 IU/L (<35); Albumin 4.8 g/dL (3.5-5.0); Albumin Globulin Ratio 1.3 (1.0-2.8); Alkaline Phosphatase 117 U/L (38-126); Aspartate Aminotransferase 61 IU/L (14-36); BUN Creatinine Ratio 15.6 (6-22); Bilirubin Total 1.2 mg/dL (0.2-1.3); Blood Urea Nitrogen 12 mg/dL (7-17); Carbon Dioxide 28 mmol/L (22-32); Chloride 101 mmol/L (98-107); Estimated Glomerular Filt Rate > 60.0 mL/min (>60); Globulin 3.8 g/dL (1.7-4.1); Glucose 140 mg/dL (70-100); HEMOLYSIS < 15 (0-50); Lipase 122 U/L (23-300); Sodium 143 mmol/L (137-145); Total Protein 8.6 g/dL (6.3-8.2)
[2021-05-16 16:48] LABS: Potassium 5.4 mmol/L (3.4-5.1)
== END ==
PROVIDERS: PCP Family Medicine; Referring Provider Physician Assistant; Visit Provider Physician Assistant
DX: R11.10 Vomiting, unspecified (principal)
CPT/HCPCS: 36415; 80053; 83690; 85025

== ENCOUNTER → 2021-08-27 13:57 | Outpatient (CLI) | payer OTHER, SELFPAY ==
[2019-11-08 03:00] VITALS: BMI 32.1
--- NOTE | 2021-08-27 13:59 | DI.RAD.S_ITS ---
PROCEDURE: XR SHOULDER LT MIN 2V INDICATIONS: Shoulder pain TECHNIQUE: 3 views of the shoulder were acquired. COMPARISON: None. FINDINGS: Bones: No fractures or dislocations. No suspicious bony lesions. Visualized ribs appear intact. Periarticular osteophyte formation at the acromioclavicular and glenohumeral joints. Soft tissues: Calcification projects over the rotator cuff. IMPRESSION: 1. Osteoarthritis. 2. Calcific tendinitis of the rotator cuff. 3. No acute fracture. No osseous lesion. If symptoms and/or clinical suspicion for pathology persist, further assessment with repeat, or advanced imaging (e.g., CT, MRI, or bone scan) may be helpful for further assessment. Dictated by: Mayte Arizmendi M.D. on 08/27/2021 at 14:31 Approved by: Mayte Arizmendi M.D. on 08/27/2021 at 14:32
== END ==
PROVIDERS: PCP Family Medicine; Referring Provider Student in an Organized Health Care Education/Training Program; Visit Provider Student in an Organized Health Care Education/Training Program
DX: M19.012 Primary osteoarthritis, left shoulder (principal); M75.32 Calcific tendinitis of left shoulder; M25.512 Pain in left shoulder
CPT/HCPCS: 73030